=== PATIENT | female | born 1985 | race Two or more races ===

== ENCOUNTER 2023-08-23 18:39 | Emergency (ER) | payer MEDICAID ==
[~2023-08-23] VITALS: Ht 172.7 cm; Wt 73.0 kg
[2023-08-23 19:38] VITALS: BP 142/78; PULSE 105; RESP 16; TEMP 98.5; O2SAT 99
[2023-08-23 21:40] LABS: CLARITY URINE CLEAR (CLEAR); COLOR URINE YELLOW (YELLOW); GLUCOSE URINE NEGATIVE (NEGATIVE); KETONES URINE NEGATIVE (NEGATIVE); LEUKOCYTE ESTERASE URINE NEGATIVE (NEGATIVE); NITRITE URINE NEGATIVE (NEGATIVE); OCCULT BLOOD URINE NEGATIVE (NEGATIVE); PH URINE 5.5 (4.5-8.0); PROTEIN URINE NEGATIVE (NEGATIVE); SPECIFIC GRAVITY URINE 1.031 (1.005-1.030)
[2023-08-23] MEDS ORDERED: CEPHALEXIN 250MG CAPSULE PO ONE (21:45)
[2023-08-23] MEDS ORDERED: IBUPROFEN 600MG TABLET PO ONE (21:45)
[2023-08-23] MEDS ORDERED: TETANUS, DIPHTHERIA, PERTUSSIS VAC/PF 0.5ML (>10YR OLD) IM ONE ×2 (21:45→23:45)
[2023-08-23] MEDS ORDERED: SULFAMETHOXAZOLE/TRIMETHOPRIM 800/160MG TABLET PO ONE (23:00)
[2023-08-23] MEDS ORDERED: SULF1TAB48 MT (23:04)
[2023-08-23] MEDS ORDERED: IBUP-2029 MT (23:04)
[2023-08-23] MEDS ORDERED: CEPH500C2 MT (23:04)
[2023-08-23] MEDS ORDERED: CEPHALEXIN 250MG CAPSULE PO NR (23:30)
[2023-08-23] MEDS ORDERED: SULFAMETHOXAZOLE/TRIMETHOPRIM 800/160MG TABLET PO NR (23:30)
[2023-08-23] MEDS ORDERED: IBUPROFEN 600MG TABLET PO NR (23:30)
== END 2023-08-23 23:46 | disposition home or self-care (01) ==
LOC: ER 18:39
DX: L02.413 Cutaneous abscess of right upper limb (principal); Z90.49 Acquired absence of other specified parts of digestive tract
CPT/HCPCS: 10060; 81003; 81025; 90471; 90715; 99284

== ENCOUNTER 2025-03-01 12:51 | Emergency (ER) | payer MEDICAID ==
[~2025-03-01] VITALS: Ht 172.7 cm; Wt 70.0 kg
[~2025-03-01 12:51] MED LIST: CEPH500C2 MT; IBUP-2029 MT; SULF1TAB48 MT
[2025-03-01 12:54] VITALS: O2SAT 100
[2025-03-01 13:28] VITALS: BP 143/81; PULSE 89; RESP 16; TEMP 37.2; O2SAT 100
[2025-03-01] MEDS ORDERED: CEPH500T MT (13:30)
[2025-03-01] MEDS ORDERED: SULF1TAB48 MT (13:30)
== END 2025-03-01 17:45 | disposition left against medical advice (07) ==
LOC: ER 12:51
DX: L03.012 Cellulitis of left finger (principal); Z90.49 Acquired absence of other specified parts of digestive tract; Z79.899 Other long term (current) drug therapy
CPT/HCPCS: 99283